=== PATIENT | female | born 1985 | race Caucasian/White ===

== ENCOUNTER 2017-02-22 17:19 | Inpatient (IN) | payer OTHER ==
[2017-02-22 18:11] LABS: ROM Internal QC QC Line Present
[2017-02-22] MEDS ORDERED: Dinoprostone* 10 MG VAG.SUPP VAGINAL ONE (20:15)
[2017-02-22] MEDS ORDERED: Lithium Carbonate TAB* 300 MG PO SCH (21:00)
[2017-02-22] MEDS: Lithium Carbonate TAB* 300 MG PO SCH (22:16)
[2017-02-22] MEDS: DOXYLAMINE PO SCH (22:16)
[2017-02-22] MEDS: PYRIDOXINE PO SCH (22:16)
[2017-02-23] MEDS ORDERED: Promethazine INJ(RESTRICTED)* 25 MG/ML 1 ML VIAL IV ONE (02:05)
[2017-02-23] MEDS ORDERED: Nalbuphine* 20 MG/ML 1 ML VIAL IV ONE (02:05)
[2017-02-23 02:54] LABS: Hematocrit 32 % (35-47); Hemoglobin 10.6 g/dl (12.0-16.0); Mean Corpuscular HGB Conc 33 g/dl (31-36); Mean Corpuscular Hemoglobin 30 pg (27-31); Mean Corpuscular Volume 90 fL (80-97); Mean Platelet Volume 10 um3 (7.4-10.4); Red Blood Count 3.53 10^6/ul (4.0-5.4); Red Cell Distribution Width 14 % (10.5-15); White Blood Count 10.9 10^3/ul (3.5-10.8)
[2017-02-23] MEDS ORDERED: Dinoprostone* 10 MG VAG.SUPP VAGINAL ONE ×2 (07:45→21:00)
[2017-02-23] MEDS: Lithium Carbonate TAB* 300 MG PO SCH (21:05)
[2017-02-23] MEDS: DOXYLAMINE PO SCH (21:05)
[2017-02-23] MEDS: PYRIDOXINE PO SCH (21:05)
[2017-02-24] MEDS ORDERED: Nalbuphine* 20 MG/ML 1 ML VIAL IM PRN (00:08)
[2017-02-24] MEDS ORDERED: Promethazine INJ(RESTRICTED)* 25 MG/ML 1 ML VIAL IM PRN (00:09)
[2017-02-24] MEDS: Oxytocin in LR* 20 UNITS/1,000 ML BAG IVPB SCH (08:03)
[2017-02-24] MEDS ORDERED: Nalbuphine* 20 MG/ML 1 ML VIAL IV PRN (13:05)
[2017-02-24] MEDS ORDERED: Promethazine INJ(RESTRICTED)* 25 MG/ML 1 ML VIAL IV ONE (13:06)
[2017-02-24] MEDS ORDERED: OBEPIDURAL* 250 ML ONE (14:04)
[2017-02-24] MEDS ORDERED: Phenylephrine IV* 40 MCG/ML 10 ML SYRINGE IV PUSH PRN ×2 (14:51)
[2017-02-24] MEDS ORDERED: Sodium Citrate/Citric Acid* 15 ML UDC PO PRN (14:51)
[2017-02-24] MEDS ORDERED: Famotidine TAB* 20 MG PO PRN (14:51)
[2017-02-24] MEDS: OBEPIDURAL* 250 ML EPIDURAL SCH (21:40)
[2017-02-24] MEDS: PYRIDOXINE PO SCH (22:07)
[2017-02-24] MEDS: Lithium Carbonate TAB* 300 MG PO SCH (22:07)
[2017-02-24] MEDS: DOXYLAMINE PO SCH (22:07)
[2017-02-25] MEDS ORDERED: Promethazine INJ(RESTRICTED)* 25 MG/ML 1 ML VIAL ONE (00:07)
[2017-02-25] MEDS: Oxytocin in LR* 20 UNITS/1,000 ML BAG IVPB SCH (08:53)
[2017-02-25] MEDS ORDERED: diPHENhydraMINE IV* 50 MG/ML 1 ml VIAL (BENADRYL) ONE (09:35)
[2017-02-25] MEDS ORDERED: diPHENhydraMINE IV* 25 MG in NS 0.9% 50 ML* 50 ML IVPB ONE (10:00)
[2017-02-25] MEDS ORDERED: Acetaminophen TAB* 325 MG PO ONE (15:01)
[2017-02-25] MEDS ORDERED: Acetaminophen TAB* 325 MG ONE (15:04)
[2017-02-25] MEDS ORDERED: Clindamycin 900 MG IVPREMIX(* 900 MG/50 ML SDV IV ONE (15:17)
[2017-02-25] MEDS ORDERED: Ampicillin IV* 1 GM VIAL ONE (15:27)
[2017-02-25] MEDS ORDERED: Acetaminophen TAB* 325 MG PO PRN (17:01)
[2017-02-25] MEDS ORDERED: Glycerin ADULT SUPP PR PRN (17:01)
[2017-02-25] MEDS: Ibuprofen TAB* 600 MG PO PRN (17:22)
[2017-02-25] MEDS ORDERED: Simethicone CHEW TAB* 80 MG PO SCH (17:30)
[2017-02-25] MEDS ORDERED: Oxytocin in LR* 20 UNITS/1,000 ML BAG IVPB SCH (18:00)
[2017-02-25] MEDS: Dibucaine 1% 28.35 GM TUBE PR PRN (20:13)
[2017-02-25] MEDS: Witch Hazel PAD* JAR TOPICAL PRN (20:13)
[2017-02-25] MEDS: OBEPIDURAL* 250 ML EPIDURAL SCH (20:52)
[2017-02-25] MEDS: Lithium Carbonate TAB* 300 MG PO SCH (21:52)
[2017-02-25] MEDS: Docusate CAP* 100 MG PO SCH (21:52)
[2017-02-25] MEDS: DOXYLAMINE PO SCH (21:53)
[2017-02-25] MEDS: PYRIDOXINE PO SCH (21:53)
[2017-02-26 06:48] LABS: Hematocrit 29 % (35-47); Hemoglobin 9.4 g/dl (12.0-16.0); Mean Corpuscular HGB Conc 33 g/dl (31-36); Mean Corpuscular Hemoglobin 30 pg (27-31); Mean Corpuscular Volume 91 fL (80-97); Mean Platelet Volume 9 um3 (7.4-10.4); Red Blood Count 3.14 10^6/ul (4.0-5.4); Red Cell Distribution Width 15 % (10.5-15); White Blood Count 17.8 10^3/ul (3.5-10.8)
[2017-02-26] MEDS: Docusate CAP* 100 MG PO SCH ×3 (09:38→23:16)
[2017-02-26] MEDS: Ferrous Gluconate TAB* 324 MG TAB PO SCH ×2 (09:38→21:01)
[2017-02-26] MEDS: Ibuprofen TAB* 600 MG PO PRN ×2 (11:49→19:38)
[2017-02-26] MEDS: Dibucaine 1% 28.35 GM TUBE PR PRN (19:39)
[2017-02-26] MEDS: Witch Hazel PAD* JAR TOPICAL PRN (19:39)
[2017-02-26] MEDS: Lithium Carbonate TAB* 300 MG PO SCH (21:01)
[2017-02-26] MEDS: DOXYLAMINE PO SCH (21:52)
[2017-02-26] MEDS: PYRIDOXINE PO SCH (21:52)
[2017-02-27] MEDS: Ferrous Gluconate TAB* 324 MG TAB PO SCH ×2 (01:36→10:17)
[2017-02-27 08:21] VITALS: BP 110/75
[2017-02-27] MEDS: Ibuprofen TAB* 600 MG PO PRN (10:16)
[2017-02-27] MEDS: Docusate CAP* 100 MG PO SCH ×2 (10:17→14:12)
[2017-02-27] MEDS: OBEPIDURAL* 250 ML EPIDURAL SCH (14:43)
--- NOTE | 2017-02-27 14:43 | PTEDU ---
Patient Name: LINDA AMBROSE LINDA AMBROSE selected video: Never Ever Shake [id number] Baby to view on 02/27/2017 at 2:42:13 PM [address] [facility] [id number]
== END 2017-02-27 17:40 | disposition home or self-care (01) | DRG 774 ==
LOC: MCHOBOUT 17:19 → MCHOB 17:46
PROVIDERS: ADMIT Obstetrics & Gynecology; ATTEND Obstetrics & Gynecology
PROC: 3E0P7GC Introduction of Other Therapeutic Substance into Female Reproductive, Via Natural or Artificial Opening (ICD-10-PCS; 2017-02-22)
PROC: 10907ZC Drainage of Amniotic Fluid, Therapeutic from Products of Conception, Via Natural or Artificial Opening (ICD-10-PCS; principal; 2017-02-24)
PROC: 3E033VJ Introduction of Other Hormone into Peripheral Vein, Percutaneous Approach (ICD-10-PCS; 2017-02-24)
PROC: 4A1HXCZ Monitoring of Products of Conception, Cardiac Rate, External Approach (ICD-10-PCS; 2017-02-24)
PROC: 10H07YZ Insertion of Other Device into Products of Conception, Via Natural or Artificial Opening (ICD-10-PCS; 2017-02-24)
PROC: 4A1H7CZ Monitoring of Products of Conception, Cardiac Rate, Via Natural or Artificial Opening (ICD-10-PCS; 2017-02-24)
PROC: 10E0XZZ Delivery of Products of Conception, External Approach (ICD-10-PCS; 2017-02-25)
PROC: 0W8NXZZ Division of Female Perineum, External Approach (ICD-10-PCS; 2017-02-25)
DX: O48.0 Post-term pregnancy (principal); O75.2 Pyrexia during labor, not elsewhere classified; O41.1230 Chorioamnionitis, third trimester, not applicable or unspecified; O99.344 Other mental disorders complicating childbirth; Z37.0 Single live birth; F41.9 Anxiety disorder, unspecified; F31.9 Bipolar disorder, unspecified; O42.12 Full-term premature rupture of membranes, onset of labor more than 24 hours following rupture; Z91.013 Allergy to seafood; O69.81X0 Labor and delivery complicated by cord around neck, without compression, not applicable or unspecified; Z3A.41 41 weeks gestation of pregnancy; O76 Abnormality in fetal heart rate and rhythm complicating labor and delivery; O77.0 Labor and delivery complicated by meconium in amniotic fluid
CPT/HCPCS: 36415; 59200; 84112; 85025; 86850; 86900; 86901; A9270-GY; J0290; J1200; J1580; J2300; J2550